=== PATIENT | female | born 1955 | race African-American/Black ===

== ENCOUNTER 2023-07-21 13:47 | Emergency (ER) | payer MEDICAID, MEDICARE ==
[~2023-07-21] VITALS: Ht 165.1 cm; Wt 100.0 kg
[~2023-07-21 13:47] MED LIST: ALBU17AE27 IH; AMLO10TA55 PO; FERR325T31 PO; FOLI1TAB15 PO; GABA-1216 PO; HYDR200T38 PO; LEVO88TA4 PO; LOSA-382 PO; METF-81 PO
[2023-07-21 14:04] VITALS: TEMP 97.8
[2023-07-21] MEDS ORDERED: FLUORESCEIN SODIUM 1 MG STRIP OD ONE (15:15)
[2023-07-21] MEDS ORDERED: ACETAMINOPHEN 500 MG TABLET PO ONE (16:15)
[2023-07-21] MEDS ORDERED: ACET-66 PO (16:19)
[2023-07-21 16:29] VITALS: BP 120/66; PULSE 70; RESP 16
[2023-07-21] MEDS ORDERED: GENTAMICIN SULFATE 0.3% OPHTHALMIC SOLUTION 5 ML OD ONE (16:30)
== END 2023-07-21 16:31 | disposition home or self-care (01) ==
LOC: EMS 14:07
DX: H10.9 Unspecified conjunctivitis (principal); M19.90 Unspecified osteoarthritis, unspecified site; J45.909 Unspecified asthma, uncomplicated; E11.9 Type 2 diabetes mellitus without complications; E78.00 Pure hypercholesterolemia, unspecified; I10 Essential (primary) hypertension; E03.9 Hypothyroidism, unspecified; Z90.49 Acquired absence of other specified parts of digestive tract; Z98.890 Other specified postprocedural states
CPT/HCPCS: 99283

== ENCOUNTER 2025-10-18 16:41 | Emergency (ER) | payer BC, MEDICAID, MEDICARE ==
[~2025-10-18] VITALS: Ht 165.1 cm; Wt 81.8 kg
[~2025-10-18 16:41] MED LIST changes: +ACET-66 PO
[2025-10-18] MEDS ORDERED: ATOR40TA28 PO (17:04)
[2025-10-18] MEDS ORDERED: OMEP-148 PO (17:04)
[2025-10-18 17:20] LABS: COVID AG,FIA SOURCE NASAL SWAB
[2025-10-18 17:26] LABS: GLUCOMETER DEV NAME(LOC) ER.7; GLUCOSE,POINT OF CARE 91 MG/DL (70-110)
[2025-10-18 18:09] LABS: SARS-COV2 (COVID) ANTIGEN,FIA Negative (Negative)
[2025-10-18 18:11] LABS: PLATELET COUNT (AUTO) 250 K/uL (150-450); RED BLOOD CELL COUNT(AUTO) 4.23 MIL/uL (4.00-5.20); RED CELL DISTRIBUTION WIDTH 13.0 % (11.5-14.5); WHITE BLOOD COUNT (AUTO) 6.8 K/uL (4.5-11.0)
[2025-10-18 18:22] LABS: CALCIUM, TOTAL 9.3 mg/dL (8.8-10.5); CREATININE 0.93 mg/dL (0.60-1.30); GLOMERULAR FILTR. RATE CALC > 60 mL/min (>60); GLUCOSE,RANDOM 103 mg/dL (70-110); SODIUM SERUM 138 mmol/L (136-145); UREA NITROGEN, BLOOD 15 mg/dL (7-18)
[2025-10-18 18:31] LABS: TROPONIN I-HIGH SENSITIVITY 12 ng/L (<51)
[2025-10-18 21:16] LABS: INFLUENZA A-RTPCR,COMBO NEGATIVE (NEGATIVE); INFLUENZA B-RTPCR,COMBO NEGATIVE (NEGATIVE); RESPIRATORY SYNCYTIAL VRS-PCR NEGATIVE (NEGATIVE); SARS COVID19 RTPCR, COMBO NEGATIVE (NEGATIVE)
[2025-10-18 21:41] LABS: ASPARTATE AMINOTRANSFERASE 49.0 U/L (15-37); TOTAL PROTEIN, SERUM 8.6 g/dL (6.4-8.2)
[2025-10-18] MEDS: DEXAMETHASONE SOD PHOS 4 MG/ML 5 ML VIAL IM ONE (22:54)
[2025-10-19 00:40] VITALS: BP 141/74; PULSE 88; RESP 19; TEMP 100.6; O2SAT 97
[2025-10-19 01:07] LABS: APPEARANCE,URINE CLEAR (CLEAR); GLUCOSE, URINE (UA) NEGATIVE (NEGATIVE); LEUKOCYTE ESTERASE ,URINE MODERATE (NEGATIVE); NITRATE,URINE NEGATIVE (NEGATIVE); OCCULT BLOOD,URINE LARGE (NEGATIVE); SPECIFIC GRAVITIY, URINE 1.021 (1.003-1.030)
[2025-10-19] MEDS: ACETAMINOPHEN 500 MG TABLET PO ONE (01:14)
[2025-10-19 01:15] LABS: AMORPHOUS SEDIMENT,UR Few /LPF (None Seen); SQUAMOUS EPITHELIAL CELL,UR Few /LPF (None Seen)
== END 2025-10-19 01:45 | disposition home or self-care (01) ==
LOC: EMS 16:45
DX: M79.18 Myalgia, other site (principal); R10.A1 Flank pain, right side; E03.9 Hypothyroidism, unspecified; E11.9 Type 2 diabetes mellitus without complications; E78.00 Pure hypercholesterolemia, unspecified; I10 Essential (primary) hypertension; J45.909 Unspecified asthma, uncomplicated; M19.90 Unspecified osteoarthritis, unspecified site; Z98.890 Other specified postprocedural states; Z90.49 Acquired absence of other specified parts of digestive tract; Z79.890 Hormone replacement therapy; Z79.899 Other long term (current) drug therapy; Z20.822 Contact with and (suspected) exposure to COVID-19
CPT/HCPCS: 99285; 74176; 87637; 71045; 80048; 80076; 81001; 82962; 83690; 83880; 84484; 85025; 93005; 96372; 36415; 87426; J1100